=== PATIENT | male | born 1980 | race Caucasian/White ===

== ENCOUNTER 2016-10-23 18:00 | Emergency (ER) | payer MEDICAID, OTHER ==
[~2016-10-23] VITALS: Ht 165.1 cm; Wt 62.1 kg
[2016-10-23 18:03] VITALS: BP 125/78; PULSE 67; RESP 16; TEMP 98.8; O2SAT 99
[2016-10-23] MEDS ORDERED: BACT800T5 PO (18:28)
--- NOTE | 2016-10-23 18:31 | PD ---
HPI Chief Complaint: Skin Problem Time Seen by Provider: 18:23 Travel History International Travel<30 days: No Contact w/Intl Traveler<30days: No Traveled to known affect area: No History of Present Illness HPI This patient complains of an infection in his right thumb. Duration 3 days. Severity is moderate. It spontaneously started draining and drained a lot of pus today. No fever or injury. PFSH Past Medical History Diminished Hearing: No Immunizations Current: Yes Past Surgical History Oral Surgery: Yes Social History Alcohol Use: Yes (OCC) Tobacco Use: Yes (1/2 ppd) Substance Use: No Allergies-Medications (Allergen,Severity, Reaction): Coded Allergies: No Known Allergies (Verified , 01/30/16) Reported Meds & Prescriptions Reported Meds & Active Scripts Active Bactrim DS (Sulfamethoxazole-Trimethoprim) 800-160 Mg Tab 1 Tab PO BID Review of Systems General / Constitutional: No: Fever HENT: No: Headaches Cardiovascular: No: Chest Pain or Discomfort Physical Exam Narrative Right thumb: Patient has a paronychia but has already expressed the pus and there is just some macular erythema and tenderness at the nail edge SKIN: Focused skin assessment reveals no rash or ulcers. Skin is warm and dry. Palpation shows no induration or nodules. Psych: Normal mood and affect. Normal insight and judgment. Data Data Last Documented VS Vital Signs Date Time Temp Pulse Resp B/P (MAP) Pulse Ox O2 Delivery O2 Flow Rate FiO2 10/23/16 18:03 98.8 67 16 125/78 (94) 99 MDM Medical Decision Making Medical Screen Exam Complete: Yes Emergency Medical Condition: Yes Medical Record Reviewed: Yes Differential Diagnosis Paronychia, cellulitis, abscess Narrative Course I have reviewed the patient's electronic medical record. Patient has right thumb paronychia that spontaneously drained the pus. It is not fluctuant or draining at this time I gave him one week of Bactrim Diagnosis Primary Impression: Paronychia of right thumb Additional Instructions: The patient was advised to follow up with their physician and return if they worsen. Med/Other Pt SpecificInfo: Prescription(s) given Scripts Sulfamethoxazole-Trimethoprim (Bactrim DS) 800-160 Mg Tab 1 TAB PO BID for Infection, #14 TAB 0 Refills Prov: Mika Reeves MD 10/23/16 Disposition: 01 DISCHARGE HOME Condition: Stable Mika Reeves MD Oct 23, 2016 18:31
== END 2016-10-23 18:40 | disposition home or self-care (01) ==
LOC: PHEFT 18:00
DX: L03.011 Cellulitis of right finger (principal)
CPT/HCPCS: 99283